=== PATIENT | female | born 1980 | race Hispanic/Latino ===

== ENCOUNTER → 2025-02-08 07:09 | Outpatient (REF) | payer OTHER, SELFPAY ==
[2025-02-08 08:47] LABS: Hematocrit 35.3 % (37.0-47.0); Hemoglobin 10.6 g/dL (12.0-16.0); Mean Corp Hgb Conc. 30.0 g/dL (33.0-37.0); Mean Corpuscular Volume 84.2 fL (81.0-99.0); Platelet Count 340 10^3/uL (130-400); Red Cell Dist. Width 17.0 % (11.5-14.5)
[2025-02-08 09:25] LABS: ALT (SGPT) 14 U/L (0-35); AST (SGOT) 15 U/L (14-36); Albumin 4.2 g/dl (3.5-5.0); Alkaline Phosphatase 67 U/L (38-126); Blood Urea Nitrogen 16 mg/dl (7-17); Calcium 9.2 mg/dl (8.4-10.2); Carbon Dioxide 26 mmol/L (22-30); Chloride 105 mmol/L (98-107); Glucose 101 mg/dl (70-99); HDL Cholesterol 86 mg/dl; LDL Cholesterol, Calculated 83 mg/dl; Potassium 4.7 mmol/L (3.5-5.1); Sodium 138 mmol/L (135-145); Total Protein 7.8 g/dl (6.3-8.2); Very Low Density Lipoprotein 20 mg/dl (0-30); eGFR > 60.00
[2025-02-08 09:42] LABS: Glycohemoglobin (HgbA1c) 5.8 % (4.0-5.9)
[2025-02-08 09:56] LABS: TSH 4.77 uIU/ml (0.47-4.68)
== END ==
LOC: CLINIC 07:09
PROVIDERS: ATTENDING PHYSICIAN Nurse Practitioner Adult Health
DX: Z00.00 Encounter for general adult medical examination without abnormal findings (principal)
CPT/HCPCS: 36415; 80053; 80061; 83036; 84439; 84443; 85027

== ENCOUNTER 2025-03-04 07:51 | Emergency (ER) | payer OTHER, SELFPAY ==
[2025-03-04 08:17] VITALS: BP 114/75
[2025-03-04 08:30] VITALS: BMI 25.0
--- NOTE | 2025-03-04 08:34 | ED.GENMED ---
History of Present Illness
General
Chief Complaint: Skin Surface Trauma
Source: patient
Exam Limitations: none
Time Seen by Provider: 03/04/25 08:27
History of Present Illness
History of Present Illness:
This patient is a 44-year-old female who, at 7 AM today, was using a device to slice onions and she accidentally cut her right middle digit. She is unaware of her last tetanus. She denies numbness, tingling, or other injury. She denies dizziness,
chest pain, shortness of breath.
Translation Services
Preferred Language: Japanese
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
Past History
Past History
ED Past Medical History: None
ED Past Surgical History: None
Social History
Tobacco: Non-smoker
Alcohol: Occasional
Drug: None
Living: with roommate
Employment: Employed
Phy Exam
Physical Exam
Physical Exam:
GENERAL: Alert , in no apparent distress
EYE: pupils equal and reactive
NECK: Supple, no significant adenopathy.
ENT: o/p clr, mmm.
CARDIAC: Regular rate and rhythm .
LUNGS: Clear breath sounds bilaterally, no acute respiratory distress, no wheezes/rales/rhonchi
ABDOMEN: Soft, without focal tenderness, no r/g
NEUROLOGICAL: Alert and oriented, no focal neuro deficits
SKIN: Warm and dry, 4 CM laceration noted volar aspect distal R middle (ring) finger, no joint/tendon invovlemetn, from, sens/motor intact
MUSCULOSKELETAL: No edema, well perfused.
PSYCH: Normal and appropriate interaction.
Course
Orders/Labs/Results
Orders:
Orders
03/04/25 08:34
Tetanus/Diphth/Acelpertussis [Adacel] 0.5 ml IM .ONCE ONE
Vital Signs
Initial and Last Documented VS:
Initial Vital Signs
Temp Pulse Resp BP Pulse Ox
98 F 73 18 114/75 97
03/04/25 08:17 03/04/25 08:17 03/04/25 08:17 03/04/25 08:17 03/04/25 08:17
Last Documented Vital Signs
Temp Pulse Resp BP Pulse Ox
98 F 73 18 114/75 97
03/04/25 08:17 03/04/25 08:17 03/04/25 08:17 03/04/25 08:17 03/04/25 08:37
Procedures
Laceration Closure
Right Finger:
Status of Wound: clean
Size of Wound in cm: 4
Description of Wound Edges: sharp
Preparation: cleaned with saline
Anesthesia: Digital-Regional
Revision/Debridement: routine- no revision
Wound exploration: explored to base- no FB
Type of Closure: single layer closure
Skin Closure Material: 4-0 nylon
Number of sutures: 10
*Pulse Oximetry
SaO2: 97
Oxygen Mode of Delivery: Room air
Patient hypoxic: no
*Critical Care Note
Total Time (30-74mins, 75-104mins- exclusive of procedures): Not Applicable
Update Note
Update Note:
Patient presents to the Emergency Department with ____finger laceration
Number and Complexity of Problems Addressed at the Encounter
� Chronic conditions affecting care:
� Acute Exacerbation and/or Progression of Chronic Illness:
� Differential Diagnosis includes: But not limited to abrasion, laceration, bony injury, retained foreign body, tendon injury, joint injury, etc. etc.
Amount and/or Complexity of Data to be Reviewed and Analyzed
� I performed an independent evaluation of and my interpretation is:
EKG:
CT:
Xrays:
Laboratory Studies:
Other:
� Review of other/old records reveals:
� Clinical information was obtained by an independent historian:
� Prescriptions/Medications Considered but not given:
� Further testing considered but not performed:
Risk of Complications and/or Morbidity or Mortality of Patient Management
� Social determinants of health affecting care:
� Discussion with other providers (PCP, Hospitalists, Consultants, etc):
� Escalation of care including admission/observation vs risk of discharge considered: History physical performed. Assisted with language line grade recorder for Japanese. I also discussed with her precautions and importance of
follow-up, will suture removal, and reasons to return to the ER. Patient expresses understanding. No findings to suggest tendon or joint involvement.
ED Attending Note
-
Portions of this chart may have been created with voice recognition software.� Occasional wrong word or��sound alike� substitutions may have occurred due to the inherent limitations of voice recognition software.
Discharge Plan
Departure
Patient Disposition: Home (Routine Discharge)
Date of Disposition: 03/04/25
Time of Disposition: 09:36
Patient with high blood pressure during this ER visit?: No
Condition: Good
Discharge Problem:
Finger laceration
Instructions: Laceration Repair With Stitches (DC)
Prescriptions:
No Action
No Current Medications
0
Referrals:
UNKNOWN - PT DOES,NOT KNOW [Family Provider]
Activity Restrictions/Additional Instructions:
IF YOU DEVELOP FEVER, REDNESS, INCREASING OR PERSISTENT PAIN, DRAINAGE, DIFFICULTY MOVING YOUR FINGER, OR OTHER WORRISOME SIGNS, PLEASE RETURN TO THE ER IMMEDIATELY. YOU SHOULD HAVE YOUR SUTURES REMOVED IN 10 DAYS.
Interventions
Interventions:
*General Assessment Last Done: 03/04/25 08:30
*Neglect/Abuse Screening Last Done: 03/04/25 08:30
*ED COVID-19 Vaccine History Last Done: 03/04/25 08:30
*ED Influenza Vaccine History Last Done: 03/04/25 08:30
[facility] Risk Assessment Tool Last Done: 03/04/25 08:30
*Risk Screen - Suicide (C-SSRS) Last Done: 12/23/25 08:30
ED-Skin Assessment Last Done: 03/04/25 08:30
Discharge Date and Time
Print Language: UKRAINIAN
== END 2025-03-04 10:28 | disposition home or self-care (01) ==
LOC: EMR 07:51
PROVIDERS: EMERGENCY PHYSICIAN Emergency Medicine
DX: S61.212A Laceration without foreign body of right middle finger without damage to nail, initial encounter (principal); W27.8XXA Contact with other nonpowered hand tool, initial encounter; Y93.G9 Activity, other involving cooking and grilling; Z23 Encounter for immunization
CPT/HCPCS: 12002; 90471; 99282; 90715

== ENCOUNTER 2025-03-11 10:34 | Emergency (ER) | payer OTHER, SELFPAY ==
[2025-03-11 10:57] VITALS: BP 103/67
--- NOTE | 2025-03-11 12:08 | ED.GENMED ---
History of Present Illness
<Jessica Zaidi PA-C - Last Filed: 03/12/25 00:42>
General
Chief Complaint: Wound Check/Suture Removal
Source: patient
Exam Limitations: none
Time Seen by Provider: 03/11/25 11:44
Nursing documentation reviewed up to this point in time: agreed with
History of Present Illness
History of Present Illness:
Patient is a 44-year-old female who presents the emergency department with pain in right third finger. Patient sustained a laceration on 03/04/2025 and had 10 sutures placed in the emergency department. She states that she has been washing the
wound with hydrogen peroxide. She states that over the past 4 days she has had severe pain in her right finger and noticed a small amount of drainage from the inferior aspect of wound. She denies any fever or chills.
No additional trauma to finger.
Past History
<Jessica Zaidi PA-C - Last Filed: 03/12/25 00:42>
Past History
ED Past Medical History: None
ED Past Surgical History: None
Social History
Tobacco: Non-smoker
Alcohol: Occasional
Drug: None
Living: with roommate
Employment: Employed
Review of Systems
<Jessica Zaidi PA-C - Last Filed: 03/12/25 00:42>
Review of Systems
Allergies reviewed?: Yes
All Other Systems: ROS reviewed and negative except as documented in HPI and ROS
Phy Exam
<SCOTT Rutledge Last Filed: 03/12/25 00:42>
Physical Exam
Physical Exam:
Vitals: Patient's vital signs are stable. Afebrile
General: Patient appears uncomfortable due to pain
Skin: Healing laceration of right third finger with sutures in place. Small amount of crusting at inferior aspect of wound
Head: Normocephalic, atraumatic
Throat: Protecting airway
Neck: Normal ROM, no cervical spine tenderness
Cardiac: Regular rate
Pulm: No apparent respiratory distress
Abdomen: Nondistended
Extremities: Healing laceration to right third digit as above. Significant tenderness around wound without any active purulent drainage. No focal tenderness along tendon sheath or erythema/swelling of digit. No areas of fluctuance. Normal
capillary refill. No tenderness or erythema of palmar aspect of hand or forearm. 2+ palpable radial pulse in RUE.
Neuro: Grossly intact
Psychiatric: Normal affect.
Course
<Jessica Zaidi PA-C - Last Filed: 03/12/25 00:42>
Orders/Labs/Results
Orders:
Orders
03/11/25 12:08
Ibuprofen [Motrin] 600 mg PO NOW STA
03/11/25 13:57
Cephalexin Monohydrate [Keflex] 500 mg PO NOW STA
Vital Signs
Initial and Last Documented VS:
Initial Vital Signs
Temp Pulse Resp BP Pulse Ox
98.6 F 85 20 103/67 98
03/11/25 10:57 03/11/25 10:57 03/11/25 10:57 03/11/25 10:57 03/11/25 10:57
Last Documented Vital Signs
Temp Pulse Resp BP Pulse Ox
98.6 F 75 16 110/64 98
03/11/25 10:57 03/11/25 14:11 03/11/25 14:11 03/11/25 14:11 03/11/25 14:11
<Jared Orantes MD - Last Filed: 03/12/25 10:32>
Orders/Labs/Results
Orders:
Orders
03/11/25 12:08
Ibuprofen [Motrin] 600 mg PO NOW STA
03/11/25 13:57
Cephalexin Monohydrate [Keflex] 500 mg PO NOW STA
Vital Signs
Initial and Last Documented VS:
Initial Vital Signs
Temp Pulse Resp BP Pulse Ox
98.6 F 85 20 103/67 98
03/11/25 10:57 03/11/25 10:57 03/11/25 10:57 03/11/25 10:57 03/11/25 10:57
Last Documented Vital Signs
Temp Pulse Resp BP Pulse Ox
98.6 F 75 16 110/64 98
03/11/25 10:57 03/11/25 14:11 03/11/25 14:11 03/11/25 14:11 03/11/25 14:11
<Jessica Zaidi PA-C - Last Filed: 03/12/25 00:42>
MDM/Problems Addressed
Differential Diagnosis Includes:
Not limited to: Inflammation, Wound infection, cellulitis, flexor tenosynovitis, etc.
MDM/Problems Addressed:
44 year old female who presents 7 days s/p right third finger laceration repaired with sutures, now with worsening pain. Patient denies fevers or systemic symptoms. On exam, patient appeared uncomfortable. Sutures were in place with minimal crusting
at the inferior aspect of the wound. There was significant localized tenderness surrounding the wound without surrounding erythema, warmth, fluctuance, purulent drainage, or significant edema. There was no tenderness along the flexor tendon sheath,
no fusiform swelling, and no pain with passive extension. Neurovascular exam was intact distally.
Differential diagnosis included localized wound inflammation versus early mild cellulitis. Low suspicion for abscess, flexor tenosynovitis, or other deep hand infection.
Patient was treated with Motrin for pain control, and a digital nerve block was performed to allow adequate anesthesia. Sutures were removed without complication, with wound edges remaining relatively well approximated. The laceration was cleansed,
covered, and immobilized with an aluminum finger splint.
Given concern for possible mild wound cellulitis, patient was prescribed oral Keflex. No indication for imaging, IV antibiotics, or surgical consultation at this time.
Patient was discharged home in stable condition with close outpatient follow-up advised with [facility]. Strict return precautions were discussed. Patient verbalized understanding and agreement with the plan.
Chronic conditions affecting care:
N/A
Acute Exacerbation and/or Progression of Chronic Illness:
N/A
<Jessica Zaidi PA-C - Last Filed: 03/12/25 00:42>
*Pulse Oximetry
SaO2: 98
Oxygen Mode of Delivery: Room air
Patient hypoxic: no
*EKG
Interpreted by ED Provider?: NA
*Corsetier Interpretation
Rate: Corsetier- N/A
*Critical Care Note
Total Time (30-74mins, 75-104mins- exclusive of procedures): Not Applicable
Data Reviewed
Review of Other/Old Records Reveals: Discharge Summary (ED discharge summary from 03/04/2025)
ED Attending Note
<Jessica Zaidi PA-C - Last Filed: 03/12/25 00:42>
-
Portions of this chart may have been created with voice recognition software.� Occasional wrong word or��sound alike� substitutions may have occurred due to the inherent limitations of voice recognition software.
<Jared Orantes MD - Last Filed: 03/12/25 10:32>
ED Attending Note
Patient seen and examined by attending physician: Yes
ED Attending Note:
Patient evaluated in ED 1 week ago secondary to accidental laceration of right middle finger on onion slicer, status post laceration repair with suture placement, presents to ED for an evaluation, including potential suture removal. Patient has
been experiencing continual pain after the incident, but states that her pain appears to have worsened over the past 3 days. Denies fever. Denies new trauma. Denies loss of sensation or weakness. Denies increased swelling. Denies redness.
Physical Exam
General: no apparent distress, not acutely ill. afebrile
Head: nc/at. eomi
Neck: supple. no meningeal signs.
Neuro: alert and oriented x 3. no focal neurological deficits
Skin: right 3rd digit: sutures in place over volar surface of distal phalanx, without swelling/erythema/ecchymosis, mild tenderness to palpation
Psychiatric: well kept. interactive and cooperative
Extremities: no edema. no calf tenderness.
Exam without any findings concerning for infection or or other concerning symptoms. Patient with expected residual discomfort, likely from the laceration. Sutures will be removed in ED and patient will be started on short course of antibiotics,
along with finger splint. As patient is uninsured, patient will be referred to [facility] for reevaluation, or consider return to ED with worsening symptoms, i.e. fever/worsening pain/swelling/redness/drainage. Patient expresses
understanding time of discharge.
Discharge Plan
Departure
Patient Disposition: Home (Routine Discharge)
Date of Disposition: 03/11/25
Time of Disposition: 13:57
Patient with high blood pressure during this ER visit?: No
Condition: Good
Discharge Problem:
Visit for suture removal
Instructions: Stitches Removal, Wound Care (DC), Cellulitis (Skin Infection), Adult (DC)
Prescriptions:
New
cephalexin 500 mg capsule
500 mg PO QID 7 Days Qty: 28 0RF
Referrals:
[facility] - Follow up in 2-3 days
Marcelino Song MD [Active, Orthopedics]
UNKNOWN - PT DOES,NOT KNOW [Family Provider]
Activity Restrictions/Additional Instructions:
Regrese al servicio de urgencias si presenta dolor persistente, fiebre, entumecimiento u hormigueo en el dedo afectado, hinchaz�n o enrojecimiento/calor importantes, secreci�n purulenta alrededor de la herida o cualquier otra inquietud.
- Hoy le retiraron los puntos de sutura en el servicio de urgencias. Mantenga la herida limpia y seca. Mant�ngala cubierta y con la f�wilma para limitar el movimiento y favorecer la cicatrizaci�n.
- Se root enviado estuardo receta de antibi�ticos a byrd farmacia; debe tomarlos cuatro veces al d�a garrison la pr�xima semana.
- Kaleva Tylenol y/o Motrin seg�n sea necesario para el dolor.
- Acuda a la [facility] en unos d�as para estuardo evaluaci�n de seguimiento y asegurarse de que la recuperaci�n progresa adecuadamente. Se le root proporcionado informaci�n de contacto de un ortopedista por si la necesita en el futuro.
Observe atentamente igor s�ntomas y regrese al servicio de urgencias si presenta un empeoramiento repentino o nuevos s�ntomas, o cualquier otra inquietud.
Interventions
Interventions:
*Nursing Disposition Last Done: 03/11/25 14:11
ED-Skin Assessment Last Done: 03/11/25 12:30
Discharge Date and Time
Discharge Date/Time: 03/11/25 14:14
Print Language: OMANI
[2025-03-11] MEDS: MOTRIN 600 MG PO (12:17)
[2025-03-11] MEDS: KEFLEX 500 MG PO (14:03)
[2025-03-11 14:11] VITALS: BP 110/64
== END 2025-03-11 14:14 | disposition home or self-care (01) ==
LOC: EMR 10:34
PROVIDERS: EMERGENCY PHYSICIAN Emergency Medicine
DX: M79.644 Pain in right finger(s) (principal); S61.212D Laceration without foreign body of right middle finger without damage to nail, subsequent encounter; X58.XXXD Exposure to other specified factors, subsequent encounter
CPT/HCPCS: 99283